=== PATIENT | male | born 1970 | race African-American/Black ===

== ENCOUNTER 2018-06-26 14:07 | Inpatient (IN) | payer OTHER ==
[2018-06-26 14:29] VITALS: BMI 25.7
--- NOTE | 2018-06-26 15:21 | HP ---
COWS - Scale Resting Pulse: 0= [place] 80 or Below Sweatin= Chills/Flushing Restless Observation: 3= Extraneous Movement Pupil Size: 1= Pupils >than Normal Bone or Joint Aches: 2= Severe Diffuse Aches Runny Nose/ Eye Tearin= Runny Nose/Eyes GI Upset > 30mins: 3= Vomiting/Diarrhea Tremor Observation: 2= Slight Tremor Visible Yawning Observation: 2= >3x During Session Anxiety or Irritability: 2=Irritable/Anxious Goose Flesh Skin: 0=Smooth Skin COWS Score: 18 CIWA Score - Admission Criteria OASAS Guidelines: Admission for Medically Managed Detox: Requires at least one of the followin. CIWA greater than 12 2. Seizures within the past 24 hours 3. Delirium tremens within the past 24 hours 4. Hallucinations within the past 24 hours 5. Acute intervention needed for co occurring medical disorder 6. Acute intervention needed for co occurring psychiatric disorder 7. Severe withdrawal that cannot be handled at a lower level of care (continued vomiting, continued diarrhea, abnormal vital signs) requiring intravenous medication and/or fluids 8. Admission ROS S - HPI Chief Complaint: i need help to stop using heroin and cocaine Allergies/Adverse Reactions: Allergies Allergy/AdvReac Type Severity Reaction Status Date / Time No Known Allergies Allergy Verified 06/26/18 15:16 History of Present Illness: this 47 years old male with heroin and cocaine dependence seeking detox,last detox in 04/14 [facility] completed hypertension non compliance weight loss anxiety,insomnia nicotine dependence Exam Limitations: No Limitations - Ebola screening Have you traveled outside of the country in the last 21 days: No Have you had contact with anyone from an Ebola affected area: No Have you been sick,other than usual withdrawal symptoms: No Do you have a fever: No - Review of Systems Constitutional: Chills, Loss of Appetite, Malaise, Night Sweats, Changes in sleep, Weakness, Unintentional Wgt. Loss EENT: reports: Tearing, Nose Congestion Respiratory: reports: No Symptoms reported Cardiac: reports: No Symptoms Reported GI: reports: Diarrhea, Nausea, Vomiting, Abdominal cramping : reports: No Symptoms Reported Musculoskeletal: reports: Back Pain, Joint Pain, Muscle Pain, Joint Stiffness Integumentary: reports: Dryness Neuro: reports: Headache, Tremors Endocrine: reports: No Symptoms Reported Hematology: reports: No Symptoms Reported Psychiatric: reports: Mood/Affect Appropiate, Orientated x3 Patient History - Patient Medical History Hx Anemia: No Hx Asthma: No Hx Chronic Obstructive Pulmonary Disease (COPD): No Hx Cancer: No Hx Cardiac Disorders: No Hx Congestive Heart Failure: No Hx Hypertension: Yes (non compliance) Hx Hypercholesterolemia: No Hx Pacemaker: No HX Cerebrovascular Accident: No Hx Seizures: No Hx Dementia: No Hx Diabetes: No Hx Gastrointestinal Disorders: No Hx Liver Disease: No Hx Genitourinary Disorders: No Hx Sexually Transmitted Disorders: No Hx Renal Disease (ESRD): No Hx Thyroid Disease: No Hx Human Immunodeficiency Virus (HIV): No (last 04/14 negative) Hx Hepatitis C: No Hx Depression: No Hx Suicide Attempt: No Hx Bipolar Disorder: No Hx Schizophrenia: No Other Medical History: no suicidal,no homicidal,anxiety,insomnia - Patient Surgical History Past Surgical History: No - PPD History Previous Implant?: Yes Documented Results: Positive w/o proof Implanted On Prior [facility] Admission?: No PPD to be Administered?: No - Smoking Cessation Smoking history: Current every day smoker Have you smoked in the past 12 months: Yes Aproximately how many cigarettes per day: 20 Cigars Per Day: 0 Hx Chewing Tobacco Use: No Initiated information on smoking cessation: Yes 'Breaking Loose' booklet given: 06/26/18 - Substance & Tx. History Hx Alcohol Use: No Hx Substance Use: Yes Substance Use Type: Cocaine, Heroin Hx Substance Use Treatment: Yes ([facility] 04/14 completed) - Substances Abused Heroin Route: Inhalation Frequency: Daily Amount used: 50 bags Age of first use: 19 Date of Last Use: 06/25/18 Cocaine Route: Inhalation Amount used: 300$ Age of first use: 40 Date of Last Use: 06/25/18 Family Disease History - Family Disease History Family History: Denies Admission Physical Exam BHS - Vital Signs Vital Signs: Vital Signs - 24 hr 06/26/18 14:28 Temperature 97.9 F Pulse Rate 70 Respiratory 18 Rate Blood Pressure 138/91 - Physical General Appearance: Yes: Moderate Distress, Irritable, Sweating, Anxious HEENTM: Yes: Normal ENT Inspection, RADHA, Pharynx Normal Respiratory: Yes: Lungs Clear, Normal Breath Sounds, No Respiratory Distress Neck: Yes: Within Normal Limits, Supple, Trachea in good position Breast: Yes: Surgical Scar Cardiology: Yes: Within Normal Limits, Regular Rhythm, S1, S2 Abdominal: Yes: Within Normal Limits, Normal Bowel Sounds, Non Tender, Flat, Soft Genitourinary: Yes: Within Normal Limits Back: Yes: Muscle Spasm Extremities: Yes: Normal Range of Motion, Tremors 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: 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: 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 NML intact, Fully Oriented, Alert, Motor Strength 5/5 Integumentary: Yes: Within Normal Limits, Dry Lymphatic: Yes: Within Normal Limits - Diagnostic (1) Opioid dependence with withdrawal Current Visit: Yes Status: Acute (2) Cocaine dependence Current Visit: Yes Status: Acute (3) Nicotine dependence Current Visit: Yes Status: Acute (4) Weight loss Current Visit: Yes Status: Acute (5) Hypertension Current Visit: Yes Status: Acute (6) Anxiety Current Visit: Yes Status: Acute (7) Insomnia Current Visit: Yes Status: Acute (8) Positive PPD, treated Current Visit: Yes Status: Acute Cleared for Admission S - Detox or Rehab [facility] Level of Care: Medically Managed Detox Regimen/Protocol: Methadone S Breath Alcohol Content Breath Alcohol Content: 0 Urine Drug Screen - Results Drug Screen Negative: No Urine Drug Screen Results: JET-Cocaine, OPI-Opiates, OXY-Oxycodone, FEN-Fentanyl
[2018-06-26] MEDS ORDERED: LOPERAMIDE HCL 2 MG CAPSULE PO PRN (15:34)
[2018-06-26] MEDS ORDERED: NICOTINE POLACRILEX 2 MG GUM BC PRN (15:34)
[2018-06-26] MEDS ORDERED: ACETAMINOPHEN 325 MG TABLET (FP) PO PRN (15:34)
[2018-06-26] MEDS ORDERED: MAGNESIUM CITRATE 300 ML BOTTLE PO PRN (15:34)
[2018-06-26] MEDS ORDERED: MAGNESIUM HYDROX 2400MG/30ML ORAL SUSPENSION 30 ML CUP PO PRN (15:34)
[2018-06-26] MEDS ORDERED: METHADONE HCL 10 MG TABLET (FOR DETOX USE ONLY) PO ONE ×2 (15:34→23:00)
[2018-06-26] MEDS ORDERED: guaiFENesin/D-METHORPHAN HB 10 ML UNIT-DOSE CUPS PO PRN (15:34)
[2018-06-26] MEDS ORDERED: MAG HYDROX/AL HYDROX/SIMETH 30 ML UNIT-DOSE CUP PO PRN (15:34)
[2018-06-26] MEDS ORDERED: MENTHOL/PHENOL 1 EACH UD MM PRN (15:34)
[2018-06-26] MEDS ORDERED: IBUPROFEN 400 MG TABLET (FP) PO PRN (15:34)
[2018-06-26] MEDS ORDERED: P-EPHED 60MG/TRIPROLIDI 2.5MG TABLET PO PRN (15:34)
[2018-06-26] MEDS ORDERED: hydrOXYzine PAMOATE 50 MG CAPSULE (FP) PO PRN (15:34)
[2018-06-26] MEDS ORDERED: CYCLOBENZAPRINE HCL 10 MG TABLET (FP) PO PRN (15:39)
[2018-06-26] MEDS: NICOTINE 21 MG/24 HOURS TOPICAL PATCH TD SCH (18:12)
[2018-06-26] MEDS: cloNIDine HCL 0.1 MG TABLET PO SCH (22:01)
[2018-06-26] MEDS: THIAMINE HCL 100 MG TABLET (FP) PO SCH (22:01)
[2018-06-27] MEDS: cloNIDine HCL 0.1 MG TABLET PO SCH ×3 (07:03→22:18)
[2018-06-27] MEDS ORDERED: METHADONE HCL 10 MG TABLET (FOR DETOX USE ONLY) PO ONE (10:00)
[2018-06-27] MEDS: NICOTINE 21 MG/24 HOURS TOPICAL PATCH TD SCH (10:18)
[2018-06-27] MEDS: PRENATAL VITAMINS W/ FOLIC ACID TABLET (FP) PO SCH (10:19)
[2018-06-27 10:28] LABS: HEMOGLOBIN 13.1 GM/dL (11.7-16.9); MCH 32.1 pg (25.7-33.7); MCHC 34.6 g/dl (32.0-35.9); MEAN CELL VOLUME 92.7 fl (80-96); MEAN PLT VOLUME 9.5 fl (7.5-11.1); PLATELET COUNT 267 K/MM3 (134-434); RDW 13.4 % (11.9-15.9); WHITE BLOOD COUNT 6.3 K/mm3 (4.0-10.0)
[2018-06-27 11:08] LABS: ALK PHOS 73 U/L (45-117); ANION GAP 7 MMOL/L (8-16); BILIRUBIN,TOTAL 0.7 mg/dL (0.2-1); BLOOD UREA NITROGEN 13 mg/dL (7-18); CALCIUM 9.2 mg/dL (8.5-10.1); CHLORIDE 104 mmol/L (98-107); CO2 31 mmol/L (21-32); GLUCOSE,RANDOM 84 mg/dL (74-106); POTASSIUM 3.7 mmol/L (3.5-5.1); SGOT/AST 24 U/L (15-37); SGPT/ALT 28 U/L (13-61); SODIUM 142 mmol/L (136-145); TOT PROT 7.4 g/dl (6.4-8.2)
--- NOTE | 2018-06-27 14:18 | EKG ---
Test Reason : Blood Pressure : / mmHG Vent. Rate : 059 BPM Atrial Rate : 059 BPM P-R Int : 144 ms QRS Dur : 094 ms QT Int : 420 ms P-R-T Axes : 082 074 055 degrees QTc Int : 415 ms SINUS BRADYCARDIA OTHERWISE NORMAL ECG NO PREVIOUS ECGS AVAILABLE Confirmed by DANELLE BECK, DENISSE ([id number]) on 06/27/2018 2:18:04 PM Referred By: Confirmed By:DENISSE MCCLENDON MD
--- NOTE | 2018-06-27 15:42 | PN ---
BHS COWS - Scale Resting Pulse: 0= [place] 80 or Below Sweatin= Chills/Flushing Restless Observation: 0= Sits Still Pupil Size: 0= Normal to Room Light Bone or Joint Aches: 2= Severe Diffuse Aches Runny Nose/ Eye Tearin= None GI Upset > 30mins: 0= None Tremor Observation of Outstretched Hands: 2= Slight Tremor Visible Yawning Observation: 1= 1-2x During Session Anxiety or Irritability: 2=Irritable/Anxious Goose Flesh Skin: 3=Piloerection COWS Score: 11 BHS Progress Note (SOAP) Subjective: Body Aches, Tremors, Fatigue, Sweating, Interrupted Sleep. Objective: PATIENT A & O X 2 (UNCERTAIN ABOUT CURRENT DAY / DATE). IN NO ACUTE DISTRESS. 06/27/18 15:43 Vital Signs Temperature 98.1 F 06/27/18 13:16 Pulse Rate 71 06/27/18 13:16 Respiratory Rate 16 06/27/18 13:16 Blood Pressure 126/71 06/27/18 13:16 O2 Sat by Pulse Oximetry (%) Laboratory Tests 06/27/18 06/27/18 06/27/18 06:00 06:00 06:00 WBC 6.3 RBC 4.10 Hgb 13.1 Hct 38.0 MCV 92.7 MCH 32.1 MCHC 34.6 RDW 13.4 Plt Count 267 MPV 9.5 Sodium 142 Potassium 3.7 Chloride 104 Carbon Dioxide 31 Anion Gap 7 L BUN 13 Creatinine 1.0 Creat Clearance w eGFR > 60 Random Glucose 84 Calcium 9.2 Total Bilirubin 0.7 AST 24 ALT 28 Alkaline Phosphatase 73 Total Protein 7.4 Albumin 4.0 RPR Titer HIV 1&2 Antibody Screen Negative HIV P24 Antigen Negative 06/27/18 06:00 WBC RBC Hgb Hct MCV MCH MCHC RDW Plt Count MPV Sodium Potassium Chloride Carbon Dioxide Anion Gap BUN Creatinine Creat Clearance w eGFR Random Glucose Calcium Total Bilirubin AST ALT Alkaline Phosphatase Total Protein Albumin RPR Titer Nonreactive HIV 1&2 Antibody Screen HIV P24 Antigen LABS NOTED. Assessment: 06/27/18 15:44 WITHDRAWAL SYMPTOMS. Plan: CONTINUE DETOX. INCREASE DAILY PO FLUID INTAKE.
[2018-06-27] MEDS: THIAMINE HCL 100 MG TABLET (FP) PO SCH (22:18)
[2018-06-28] MEDS: cloNIDine HCL 0.1 MG TABLET PO SCH ×3 (06:29→22:23)
[2018-06-28] MEDS ORDERED: METHADONE HCL 5 MG TABLET (FOR DETOX USE ONLY) PO ONE (10:00)
[2018-06-28] MEDS: PRENATAL VITAMINS W/ FOLIC ACID TABLET (FP) PO SCH (10:18)
[2018-06-28] MEDS: NICOTINE 21 MG/24 HOURS TOPICAL PATCH TD SCH (11:21)
--- NOTE | 2018-06-28 18:41 | PN ---
BHS COWS - Scale Resting Pulse: 0= [place] 80 or Below Sweatin= Chills/Flushing Restless Observation: 1= Difficult to Sit Still Pupil Size: 0= Normal to Room Light Bone or Joint Aches: 2= Severe Diffuse Aches Runny Nose/ Eye Tearin= None GI Upset > 30mins: 0= None Tremor Observation of Outstretched Hands: 2= Slight Tremor Visible Yawning Observation: 1= 1-2x During Session Anxiety or Irritability: 2=Irritable/Anxious Goose Flesh Skin: 0=Smooth Skin COWS Score: 9 BHS Progress Note (SOAP) Subjective: Body Aches, Tremors, Sweating, Interrupted Sleep. Objective: PATIENT A & O X 3, OBSERVED AMBULATING ON UNIT. IN NO ACUTE DISTRESS. 06/28/18 18:42 Vital Signs Temperature 98.6 F 06/28/18 17:24 Pulse Rate 68 06/28/18 17:24 Respiratory Rate 18 06/28/18 17:24 Blood Pressure 91/48 L 06/28/18 17:24 O2 Sat by Pulse Oximetry (%) Laboratory Tests 06/27/18 06/27/18 06/27/18 06:00 06:00 06:00 WBC 6.3 RBC 4.10 Hgb 13.1 Hct 38.0 MCV 92.7 MCH 32.1 MCHC 34.6 RDW 13.4 Plt Count 267 MPV 9.5 Sodium 142 Potassium 3.7 Chloride 104 Carbon Dioxide 31 Anion Gap 7 L BUN 13 Creatinine 1.0 Creat Clearance w eGFR > 60 Random Glucose 84 Calcium 9.2 Total Bilirubin 0.7 AST 24 ALT 28 Alkaline Phosphatase 73 Total Protein 7.4 Albumin 4.0 RPR Titer HIV 1&2 Antibody Screen Negative HIV P24 Antigen Negative 06/27/18 06:00 WBC RBC Hgb Hct MCV MCH MCHC RDW Plt Count MPV Sodium Potassium Chloride Carbon Dioxide Anion Gap BUN Creatinine Creat Clearance w eGFR Random Glucose Calcium Total Bilirubin AST ALT Alkaline Phosphatase Total Protein Albumin RPR Titer Nonreactive HIV 1&2 Antibody Screen HIV P24 Antigen LABS NOTED. Assessment: WITHDRAWAL SYMPTOMS. 06/28/18 18:42 Plan: CONTINUE DETOX.
[2018-06-28] MEDS: THIAMINE HCL 100 MG TABLET (FP) PO SCH (22:20)
[2018-06-28] MEDS: diazePAM 5 MG TABLET PO PRN (22:20)
[2018-06-28] MEDS: MELATONIN 5 MG TABLETS PO PRN (22:21)
[2018-06-29] MEDS: cloNIDine HCL 0.1 MG TABLET PO SCH ×3 (06:18→22:23)
[2018-06-29] MEDS ORDERED: METHADONE HCL 5 MG TABLET (FOR DETOX USE ONLY) PO ONE (10:00)
[2018-06-29] MEDS: diazePAM 5 MG TABLET PO PRN (10:26)
[2018-06-29] MEDS: NICOTINE 21 MG/24 HOURS TOPICAL PATCH TD SCH (10:27)
[2018-06-29] MEDS: PRENATAL VITAMINS W/ FOLIC ACID TABLET (FP) PO SCH (10:27)
--- NOTE | 2018-06-29 16:27 | PN ---
BHS Progress Note (SOAP) Subjective: Interrupted Sleep, Body Aches, Tremors, Sweating. Objective: PATIENT A & O X 3, OBSERVED AMBULATING ON UNIT. IN NO ACUTE DISTRESS. 06/29/18 16:26 Vital Signs Temperature 98.9 F 06/29/18 14:03 Pulse Rate 58 L 06/29/18 14:03 Respiratory Rate 18 06/29/18 14:03 Blood Pressure 126/80 06/29/18 14:03 O2 Sat by Pulse Oximetry (%) Laboratory Tests 06/27/18 06/27/18 06/27/18 06:00 06:00 06:00 WBC 6.3 RBC 4.10 Hgb 13.1 Hct 38.0 MCV 92.7 MCH 32.1 MCHC 34.6 RDW 13.4 Plt Count 267 MPV 9.5 Sodium 142 Potassium 3.7 Chloride 104 Carbon Dioxide 31 Anion Gap 7 L BUN 13 Creatinine 1.0 Creat Clearance w eGFR > 60 Random Glucose 84 Calcium 9.2 Total Bilirubin 0.7 AST 24 ALT 28 Alkaline Phosphatase 73 Total Protein 7.4 Albumin 4.0 RPR Titer HIV 1&2 Antibody Screen Negative HIV P24 Antigen Negative 06/27/18 06:00 WBC RBC Hgb Hct MCV MCH MCHC RDW Plt Count MPV Sodium Potassium Chloride Carbon Dioxide Anion Gap BUN Creatinine Creat Clearance w eGFR Random Glucose Calcium Total Bilirubin AST ALT Alkaline Phosphatase Total Protein Albumin RPR Titer Nonreactive HIV 1&2 Antibody Screen HIV P24 Antigen LABS NOTED. Assessment: 06/29/18 16:26 WITHDRAWAL SYMPTOMS. Plan: CONTINUE DETOX.
[2018-06-29] MEDS: THIAMINE HCL 100 MG TABLET (FP) PO SCH (22:23)
[2018-06-29] MEDS: MELATONIN 5 MG TABLETS PO PRN (22:24)
[2018-06-30] MEDS: cloNIDine HCL 0.1 MG TABLET PO SCH ×3 (06:07→21:39)
[2018-06-30] MEDS: PRENATAL VITAMINS W/ FOLIC ACID TABLET (FP) PO SCH (09:36)
[2018-06-30] MEDS: NICOTINE 21 MG/24 HOURS TOPICAL PATCH TD SCH (09:38)
[2018-06-30] MEDS ORDERED: METHADONE HCL 10 MG TABLET (FOR DETOX USE ONLY) PO ONE (10:00)
--- NOTE | 2018-06-30 14:08 | PN ---
BHS Progress Note (SOAP) Subjective: feeling better sleep better at night mild tremor less body aches discuss aftercare with staff going to short term [facility] 8 then half-way a year work program patient is in good spirit and optimistic about recovery Objective: 06/30/18 14:07 Vital Signs Temperature 96.9 F L 06/30/18 14:06 Pulse Rate 54 L 06/30/18 14:06 Respiratory Rate 17 06/30/18 14:06 Blood Pressure 123/80 06/30/18 14:06 O2 Sat by Pulse Oximetry (%) Laboratory Last Values WBC 6.3 K/mm3 (4.0-10.0) 06/27/18 06:00 RBC 4.10 M/mm3 (4.00-5.60) 06/27/18 06:00 Hgb 13.1 GM/dL (11.7-16.9) 06/27/18 06:00 Hct 38.0 % (35.4-49) 06/27/18 06:00 MCV 92.7 fl (80-96) 06/27/18 06:00 MCH 32.1 pg (25.7-33.7) 06/27/18 06:00 MCHC 34.6 g/dl (32.0-35.9) 06/27/18 06:00 RDW 13.4 % (11.9-15.9) 06/27/18 06:00 Plt Count 267 K/MM3 (134-434) 06/27/18 06:00 MPV 9.5 fl (7.5-11.1) 06/27/18 06:00 Sodium 142 mmol/L (136-145) 06/27/18 06:00 Potassium 3.7 mmol/L (3.5-5.1) 06/27/18 06:00 Chloride 104 mmol/L (98-107) 06/27/18 06:00 Carbon Dioxide 31 mmol/L (21-32) 06/27/18 06:00 Anion Gap 7 MMOL/L (8-16) L 06/27/18 06:00 BUN 13 mg/dL (7-18) 06/27/18 06:00 Creatinine 1.0 mg/dL (0.55-1.3) 06/27/18 06:00 Creat Clearance w eGFR > 60 (>60) 06/27/18 06:00 Random Glucose 84 mg/dL (74-106) 06/27/18 06:00 Calcium 9.2 mg/dL (8.5-10.1) 06/27/18 06:00 Total Bilirubin 0.7 mg/dL (0.2-1) 06/27/18 06:00 AST 24 U/L (15-37) 06/27/18 06:00 ALT 28 U/L (13-61) 06/27/18 06:00 Alkaline Phosphatase 73 U/L (45-117) 06/27/18 06:00 Total Protein 7.4 g/dl (6.4-8.2) 06/27/18 06:00 Albumin 4.0 g/dl (3.4-5.0) 06/27/18 06:00 RPR Titer Nonreactive (NONREACTIVE) 06/27/18 06:00 HIV 1&2 Antibody Screen Negative 06/27/18 06:00 HIV P24 Antigen Negative 06/27/18 06:00 lab noted Assessment: 06/30/18 14:08 mild withdrawal sx Plan: continue detox
[2018-06-30] MEDS: THIAMINE HCL 100 MG TABLET (FP) PO SCH (21:38)
[2018-06-30] MEDS: MELATONIN 5 MG TABLETS PO PRN (21:39)
[2018-07-01] MEDS ORDERED: METHADONE HCL 5 MG TABLET (FOR DETOX USE ONLY) PO ONE (06:00)
[2018-07-01] MEDS: cloNIDine HCL 0.1 MG TABLET PO SCH (06:04)
[2018-07-01 09:06] VITALS: BP 106/58; PULSE 61; TEMP 97
--- NOTE | 2018-07-01 10:27 | DS ---
[facility] Detox Discharge Summary Admission Date: 06/26/18 Discharge Date: 07/01/18 - History Present History: Opioid Dependence Additional Comments: 47 years old male admitted on 06/26/18 for opiate withdrawal stabilization completed opiate detox regimen aftercare [facility] patient determines to maintain sober plan to go to senior care sober house after short-term elevator 8 Pertinent Past History: a list of medication was provided to the patient informed adherence with the medication take as prescribed bring in medication bottles or list of medication to all mental mental and addiction care appointments update list of medication immediately any changes on medications bring lab results to aftercare appointment nasal narcan kit 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 - Physical Exam Results Vital Signs: Vital Signs Temperature 97.0 F L 07/01/18 09:05 Pulse Rate 61 07/01/18 09:05 Respiratory Rate 20 07/01/18 09:05 Blood Pressure 106/58 L 07/01/18 09:05 O2 Sat by Pulse Oximetry (%) Pertinent Admission Physical Exam Findings: opiate withdrawal sx Laboratory Last Values WBC 6.3 K/mm3 (4.0-10.0) 06/27/18 06:00 RBC 4.10 M/mm3 (4.00-5.60) 06/27/18 06:00 Hgb 13.1 GM/dL (11.7-16.9) 06/27/18 06:00 Hct 38.0 % (35.4-49) 06/27/18 06:00 MCV 92.7 fl (80-96) 06/27/18 06:00 MCH 32.1 pg (25.7-33.7) 06/27/18 06:00 MCHC 34.6 g/dl (32.0-35.9) 06/27/18 06:00 RDW 13.4 % (11.9-15.9) 06/27/18 06:00 Plt Count 267 K/MM3 (134-434) 06/27/18 06:00 MPV 9.5 fl (7.5-11.1) 06/27/18 06:00 Sodium 142 mmol/L (136-145) 06/27/18 06:00 Potassium 3.7 mmol/L (3.5-5.1) 06/27/18 06:00 Chloride 104 mmol/L (98-107) 06/27/18 06:00 Carbon Dioxide 31 mmol/L (21-32) 06/27/18 06:00 Anion Gap 7 MMOL/L (8-16) L 06/27/18 06:00 BUN 13 mg/dL (7-18) 06/27/18 06:00 Creatinine 1.0 mg/dL (0.55-1.3) 06/27/18 06:00 Creat Clearance w eGFR > 60 (>60) 06/27/18 06:00 Random Glucose 84 mg/dL (74-106) 06/27/18 06:00 Calcium 9.2 mg/dL (8.5-10.1) 06/27/18 06:00 Total Bilirubin 0.7 mg/dL (0.2-1) 06/27/18 06:00 AST 24 U/L (15-37) 06/27/18 06:00 ALT 28 U/L (13-61) 06/27/18 06:00 Alkaline Phosphatase 73 U/L (45-117) 06/27/18 06:00 Total Protein 7.4 g/dl (6.4-8.2) 06/27/18 06:00 Albumin 4.0 g/dl (3.4-5.0) 06/27/18 06:00 RPR Titer Nonreactive (NONREACTIVE) 06/27/18 06:00 HIV 1&2 Antibody Screen Negative 06/27/18 06:00 HIV P24 Antigen Negative 06/27/18 06:00 lab noted discuss medication assisted treatment program - Treatment Hospital Course: Detox Protocol Followed, Detoxed Safely, Responded well, Discharged Condition Good, Rehab Referral Accepted Patient has Accepted a Rehab Referral to: [facility] - Medication Discharge Medications: Ambulatory Orders Naloxone HCl [Narcan] 4 mg NS ASDIR PRN #1 spray 06/30/18 - Diagnosis (1) Hypertension Status: Chronic Qualifiers: Hypertension type: essential hypertension Qualified Code(s): I10 - Essential (primary) hypertension (2) Nicotine dependence Status: Acute Qualifiers: Nicotine product type: cigarettes Substance use status: in withdrawal Qualified Code(s): F17.213 - Nicotine dependence, cigarettes, with withdrawal (3) Opioid dependence with withdrawal Status: Acute (4) Positive PPD, treated Status: Resolved - AMA Did Patient Leave Against Medical Advice: No
== END 2018-07-01 09:26 | disposition home or self-care (01) | DRG 773 ==
LOC: YASAS 14:07 → Y3N 17:12
PROVIDERS: ADMIT Neuromusculoskeletal Medicine & OMM; ATTEND Neuromusculoskeletal Medicine & OMM
PROC: HZ2ZZZZ Detoxification Services for Substance Abuse Treatment (ICD-10-PCS; principal; 2018-06-26)
DX: F11.23 Opioid dependence with withdrawal (principal); F14.20 Cocaine dependence, uncomplicated; F17.213 Nicotine dependence, cigarettes, with withdrawal; F41.9 Anxiety disorder, unspecified; I10 Essential (primary) hypertension; R76.11 Nonspecific reaction to tuberculin skin test without active tuberculosis; G47.00 Insomnia, unspecified; Z91.14 Patient's other noncompliance with medication regimen; Z59.0 Homelessness
CPT/HCPCS: 36415; 80053; 85027; 86593; 87389; 93005; 93010; J0735